=== PATIENT | female | born 1960 | race Two or more races ===

== ENCOUNTER 2021-05-13 09:31 | Outpatient (CLI) | payer OTHER ==
[~2021-05-13 09:31] MED LIST: DIOVAN160 M1 PO; INDERAL1 MG/M1 IV
== END 2021-05-13 09:41 | disposition home or self-care (01) ==
LOC: MAMO-SONO 09:31
PROVIDERS: ATTEND Specialist
DX: N64.89 Other specified disorders of breast (principal); Z12.31 Encounter for screening mammogram for malignant neoplasm of breast

== ENCOUNTER 2023-07-29 10:00 | Emergency (ER) | payer OTHER ==
[~2023-07-29] VITALS: Ht 157.5 cm; Wt 72.6 kg
[2023-07-29] MEDS ORDERED: HYZAAR 50-12.51 EACH PO (10:19)
[2023-07-29] MEDS ORDERED: ACID REDUCER20 M1 PO (10:19)
[2023-07-29] MEDS ORDERED: GABAPENTIN300 M2 PO (10:19)
[2023-07-29] MEDS ORDERED: ZESTORETIC 10-1 EACH (10:20)
[2023-07-29 12:27] LABS: HEMATOCRIT 38.2 % (36.0-45.00); HEMOGLOBIN 12.8 g/dL (12.0-15.00); MEAN CELL VOLUME 87.5 fL (80.00-100.00); MEAN CORPUSCULAR HEMOGLOBIN 29.4 pg (27.00-32.0); MEAN CORPUSCULAR HGB CONC 33.6 g/dl (32.0-36.0); PLATELET COUNT 313 K/uL (150-450); RED BLOOD COUNT 4.37 M/uL (4.00-6.00); RED CELL DISTRIBUTION WIDTH 12.9 % (11.5-14.5)
[2023-07-29 13:22] LABS: URINE APPEARANCE Clear; URINE BILIRRUBIN Negative (NEGATIVE); URINE BLOOD Negative; URINE COLOR Yellow; URINE GLUCOSE Negative (NEGATIVE); URINE LEUKOCYTE Small; URINE NITRATE Negative; URINE PROTEIN Trace (NEGATIVE)
[2023-07-29 13:25] LABS: URINE BACTERIA 711.9 uL (0.0-1933); URINE RBC 11.4 uL (0.0-20.8); URINE WBC 28.1 uL (0.0-23.2)
[2023-07-29 14:18] LABS: CALCIUM 8.9 mg/dL (8.5-10.1); CREATININE SERUM 0.7 mg/dL (0.55-1.02); GFR 84.24; POTASSIUM 3.88 mEq/L (3.5-5.1)
== END 2023-07-29 14:27 | disposition home or self-care (01) ==
LOC: ER 10:01
PROVIDERS: General Practice
DX: R11.10 Vomiting, unspecified (principal); Z20.822 Contact with and (suspected) exposure to COVID-19

== ENCOUNTER 2024-12-25 09:02 | Outpatient (CLI) | payer OTHER ==
[~2024-12-25 09:02] MED LIST changes: +ACID REDUCER20 M1 PO; +GABAPENTIN300 M2 PO; +HYZAAR 50-12.51 EACH PO; +ZESTORETIC 10-1 EACH
== END 2024-12-25 09:05 | disposition home or self-care (01) ==
LOC: MAMO-SONO 09:02
PROVIDERS: ATTEND Internal Medicine Cardiovascular Disease
DX: N60.11 Diffuse cystic mastopathy of right breast (principal); N60.12 Diffuse cystic mastopathy of left breast; Z12.31 Encounter for screening mammogram for malignant neoplasm of breast

== ENCOUNTER 2025-06-17 08:51 | Emergency (ER) | payer OTHER ==
[~2025-06-17] VITALS: Ht 157.5 cm; Wt 60.8 kg
[2025-06-17] MEDS ORDERED: KETOROLAC TROMETHAMINE 60 MG VIAL IM ONE (11:30)
[2025-06-17] MEDS ORDERED: DEXAMETHASONE SODIUM PHOSPHATE 4 MG/ML VIAL IM ONE (11:30)
[2025-06-17 13:12] LABS: BASO % 0.4 % (0.1-1.2); EOS # 0.02 (0.04-0.54); EOS % 0.2 % (0.7-7.0); LYMPH # 1.76 (1.18-3.74); LYMPH % 19.0 % (19.3-53.1); MEAN PLATELET VOLUME 9.90 fl (9.4-12.4); MONO # 0.73 (0.24-0.82); MONO % 7.9 % (4.7-12.5); NEUT # 6.71 (1.56-6.13); NEUT % 72.4 % (34.0-71.1); RED CELL DISTRIBUTION WIDTH 12.7 % (11.6-14.4)
[2025-06-17 13:49] LABS: ALT/SGPT 28.0 U/L (12-78); AST/SGOT 24.0 U/L (15-37); BILIRUBIN TOTAL 0.4 mg/dL (0.3-1.2); BUN CREA RATIO 25.0 (7.0-25.0); CREATININE SERUM 0.55 mg/dL (0.55-1.02); GFR 110.59; GLOBULINA 3.9 G/DL (2.4-3.5); GLUCOSE FASTING 96.0 mg/dL (65-100); OSMOLALITY SERUM 276.0 MOSM/KG (275-295)
[2025-06-17 13:51] LABS: INR 0.97
[2025-06-18] MEDS ORDERED: ARBLI10 MG/1 ML PO (06:37)
[2025-06-18] MEDS ORDERED: EZALLOR SPRINKLE5 MG PO (06:37)
[2025-06-18] MEDS ORDERED: FOSAMAX70 MG PO (06:38)
[2025-06-18] MEDS ORDERED: PERCOCET 5-3251 EACH PO (19:11)
[2025-06-18] MEDS ORDERED: CEFADROXIL500 MG PO (19:11)
[2025-06-18] MEDS ORDERED: ALEVE220 M1 PO (19:11)
== END 2025-06-17 13:49 | disposition home or self-care (01) ==
LOC: ER 08:52
DX: S52.592A Other fractures of lower end of left radius, initial encounter for closed fracture (principal); W18.39XA Other fall on same level, initial encounter; Y93.89 Activity, other specified; Y92.018 Other place in single-family (private) house as the place of occurrence of the external cause; Y99.9 Unspecified external cause status; I10 Essential (primary) hypertension
CPT/HCPCS: 29126; 36415; 71046; 73090; 73110; 93005; 99284; J1100; J1885

== ENCOUNTER 2025-06-18 06:23 | Day surgery (SDC) | payer OTHER ==
[~2025-06-18] VITALS: Ht 157.5 cm; Wt 62.6 kg
[2025-06-18] MEDS ORDERED: EZALLOR SPRINKLE5 MG PO (06:37)
[2025-06-18] MEDS ORDERED: ARBLI10 MG/1 ML PO (06:37)
[2025-06-18] MEDS ORDERED: FOSAMAX70 MG PO (06:38)
--- NOTE | 2025-06-18 06:38 | NUR ---
SE RECIBE PACIENTE ALERTA Y COCNIENTE X3. EL MISMO REFIERE TENER DOLOR EN LA SHOAIB IZQ. POR CAIDA EN EL AXEL DE MASHA. S EPROCEDE A JUNE S/ A PACIENTE Y SE UBICA EL MISMO.
[2025-06-18] MEDS ORDERED: 0.9 % SODIUM CHLORIDE 1,000 ML IV STA (08:07)
--- NOTE | 2025-06-18 09:06 | NUR ---
SE CANALIZA A PACIENTE BAJO MEDIDAS ASEPTICAS Y SE COLOCAN IVF'S ERIC ORDEN MEDICA. SE ORIENTA A PACIENTE SOBRE ORDEN NPO. PENDIENTE CONSULTA CON MEDICINA INTERNA.
[2025-06-18] MEDS ORDERED: LISINOPRIL 20 MG TABLET PO SCH (10:20)
[2025-06-18] MEDS ORDERED: HYDROCHLOROTHIAZIDE 12.5 MG CAPSULE PO SCH (10:20)
[2025-06-18] MEDS ORDERED: MORPHINE SULFATE 4 MG/ML CARTRIDGE IV PRN (10:30)
[2025-06-18] MEDS ORDERED: RINGERS SOLUTION,LACTATED 1,000 ML IV SCH (10:30)
[2025-06-18] MEDS ORDERED: ENALAPRILAT DIHYDRATE 1.25 MG/ML VIAL IV PRN (16:00)
[2025-06-18] MEDS ORDERED: POVIDONE-IODINE 118 ML BOTT TOP ONE (17:07)
[2025-06-18] MEDS ORDERED: PERCOCET 5-3251 EACH PO (19:11)
[2025-06-18] MEDS ORDERED: ALEVE220 M1 PO (19:11)
[2025-06-18] MEDS ORDERED: CEFADROXIL500 MG PO (19:11)
[2025-06-18 20:45] VITALS: BP 121/55; O2SAT 100
[2025-06-18] MEDS ORDERED: FAMOTIDINE/PF 20 MG/2 ML VIAL IV SCH (21:00)
[2025-06-19] MEDS ORDERED: ROSUVASTATIN CALCIUM 10 MG TABLET PO SCH (09:00)
[2025-06-19] MEDS ORDERED: ENOXAPARIN SODIUM 40 MG/0.4 ML SYRINGE SUBCUTANEO SCH (09:00)
[2025-06-20 12:11] LABS: hav igm Negative (Negative); hep b c Negative (Negative); hep b s ag Negative (Negative)
== END 2025-06-18 20:35 | disposition home or self-care (01) ==
LOC: CIR.AMB 06:23 → ER 06:23 → O/R 11:08 → SEC-K 11:08 → O/R 16:21 → SEC-K 16:21 → O/R 20:35 → CIR.AMB 20:35
PROVIDERS: Internal Medicine; ATTEND General Practice
DX: S52.532A Colles' fracture of left radius, initial encounter for closed fracture (principal); S52.692A Other fracture of lower end of left ulna, initial encounter for closed fracture; M81.0 Age-related osteoporosis without current pathological fracture
CPT/HCPCS: 25609; 20902; 25652; L8699